=== PATIENT | male | born 1995 | race Caucasian/White ===

== ENCOUNTER 2018-12-09 19:31 | Emergency (ER) | payer OTHER ==
--- NOTE | 2018-12-09 19:50 | ED Physician Documentation ---
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 His eyes are fine and he did not inhale any but his facial skin feels slightly inflamed.) Review of Systems Constitutional: denies: Fever, Chills Cardiac: denies: Chest pain / pressure, Palpitations Respiratory: denies: Dyspnea, Cough PD PAST MEDICAL HISTORY - Past Medical History Past Medical History: Yes Other Past Medical History: Insomnia - Past Surgical History Past Surgical History: No - Present Medications Home Medications: Ambulatory Orders Medication Instructions Recorded Confirmed traZODone [Desyrel] 50 mg PO HS 12/09/18 12/09/18 - Allergies Allergies/Adverse Reactions: Allergies Allergy/AdvReac Type Severity Reaction Status Date / Time No Known Drug Allergies Allergy Verified 12/09/18 19:37 - Social History Does the pt smoke?: Yes Smoking Status: Current every day smoker Does the pt drink ETOH?: Yes Does the pt have substance abuse?: No - Immunizations Immunizations are current?: Yes - POLST Patient has POLST: No PD ED PE NORMAL - Vitals Vital signs reviewed: Yes - General General: Alert and oriented X 3, Other (Smells strongly of gasoline) - HEENT HEENT: PERRL, EOMI, Pharynx benign - Neck Neck: Supple, no meningeal sign, No bony TTP - Cardiac Cardiac: RRR, No murmur - Respiratory Respiratory: No respiratory distress, Clear bilaterally - Abdomen Abdomen: Non tender - Derm Derm: No rash - Neuro Neuro: Alert and oriented X 3, Normal speech - Psych Psych: Normal mood, Normal affect Results - Vitals Vitals: Vital Signs - 24 hr 12/09/18 19:34 Temperature 35.7 C L Heart Rate 112 H Respiratory 97 H Rate Blood Pressure 124/80 O2 Saturation 100 Oxygen O2 Source Room air Departure - Departure Disposition: 01 Home, Self Care Clinical Impression: 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 Return for new issues. Forms: Activity restrictions
[2018-12-09 20:08] VITALS: BP 110/68
== END 2018-12-09 20:02 | disposition home or self-care (01) ==
LOC: ED 19:31
DX: T52.0X1A Toxic effect of petroleum products, accidental (unintentional), initial encounter (principal); F17.200 Nicotine dependence, unspecified, uncomplicated
CPT/HCPCS: 99282; 99285

== ENCOUNTER 2021-03-14 20:22 | Emergency (ER) | payer OTHER ==
--- NOTE | 2021-03-14 20:59 | ED Physician Documentation ---
PD HPI HEADACHE - Stated complaint Stated Complaint: HERNANDEZ - Chief complaint Chief Complaint: Neuro - History obtained from History obtained from: Patient - History of Present Illness Timing - onset: Enter time (16:00) Timing - onset during: Rest (at rest having just finished dinner) Timing - duration: Hours Timing - details: Gradual onset Pain level now: 9 Worst headache ever?: No: Worst headache ever? Location: Global Quality: Throbbing, Aching Associated symptoms: Nausea. No: Fever, Stiff neck, Vomiting, Weakness, Numbness Improved by: Rest, Dark room Contributing factors: No: Anticoagulated, Possible carbon monoxide, Hypertension Similar symptoms before: No diagnosis (similar headaches in the past but he has them unusually and hasn't needed medical attention for headache for many years) Recently seen: Not recently seen Review of Systems Constitutional: denies: Fever, Chills, Sweats Eyes: reports: Photophobia. denies: Loss of vision, Decreased vision GI: reports: Nausea. denies: Abdominal Pain, Vomiting Neurologic: reports: Headache. denies: Generalized weakness, Focal weakness, Numbness PD PAST MEDICAL HISTORY - Past Medical History Past Medical History: Yes Neuro: Headaches - Past Surgical History Past Surgical History: No - Present Medications Home Medications: Ambulatory Orders Medication Instructions Recorded Confirmed Promethazine [Phenergan] 25 mg PO Q6H PRN #10 tab 03/14/21 SUMAtriptan [Imitrex] 25 mg PO ONCE PRN #20 tablet 03/14/21 - Allergies Allergies/Adverse Reactions: Allergies Allergy/AdvReac Type Severity Reaction Status Date / Time No Known Drug Allergies Allergy Verified 03/14/21 20:30 - Social History Does the pt smoke?: Yes Smoking Status: Current every day smoker Does the pt drink ETOH?: Yes Does the pt have substance abuse?: No - Immunizations Immunizations are current?: Yes - POLST Patient has POLST: No PD ED PE NORMAL - Vitals Vital signs reviewed: Yes - General General: Alert and oriented X 3, No acute distress (NAD at rest but lights off for patient comfort, and he keeps a towel over his eyes due to photophobia), Well developed/nourished - HEENT HEENT: Moist mucous membranes - Neck Neck: Supple, no meningeal sign - Cardiac Cardiac: RRR, No murmur - Respiratory Respiratory: No respiratory distress, Clear bilaterally - Neuro Neuro: Alert and oriented X 3, client services director 2-12 intact, No motor deficit, No sensory deficit, Normal speech Eye Opening: Spontaneous Motor: Obeys Commands Verbal: Oriented GCS Score: 15 - Psych Psych: Normal mood, Normal affect Results - Vitals Vitals: Oxygen O2 Source Room air PD MEDICAL DECISION MAKING - ED course Complexity details: re-evaluated patient, considered differential, d/w patient ED course: Patient reports significant improvement after IM benadryl, toradol, and phenergan and requests d/c home. Departure - Departure Disposition: , Self Care Clinical Impression: Headache Condition: Good Instructions: ED Cephalgia Unspecified Follow-Up: [facility] [Provider Group] Prescriptions: SUMAtriptan [Imitrex] 25 mg PO ONCE PRN #20 tablet PRN Reason: Headache Promethazine [Phenergan] 25 mg PO Q6H PRN #10 tab PRN Reason: Nausea / Vomiting Forms: Activity restrictions Discharge Date/Time: 03/14/21 22:45
[2021-03-14] MEDS: PROMETHAZINE 25 MG/1 ML VIAL IM STA (21:28)
[2021-03-14] MEDS: KETOROLAC 15 MG/ML VIAL IM STA (21:28)
[2021-03-14] MEDS: diphenhydrAMINE INJ 50 MG/ML VIAL IM STA (21:29)
[2021-03-14 22:39] VITALS: BP 137/79
[2021-03-14] MEDS: SUMAtriptan 25 MG TABLET PO STA (22:40)
== END 2021-03-14 22:45 | disposition home or self-care (01) ==
LOC: ED 20:22
DX: R51.9 Headache, unspecified (principal); R11.0 Nausea; H53.149 Visual discomfort, unspecified; F17.200 Nicotine dependence, unspecified, uncomplicated
CPT/HCPCS: 96372; 96374; 99283; A9270; J1200

== ENCOUNTER 2021-08-08 16:34 | Emergency (ER) | payer OTHER ==
[2021-08-08] MEDS ORDERED: ONDANSETRON 4 MG/2 ML VIAL IVP STA (16:48)
[2021-08-08] MEDS ORDERED: diphenhydrAMINE INJ 50 MG/ML VIAL IVP STA (16:48)
[2021-08-08] MEDS ORDERED: SODIUM CHLORIDE 0.9% 1,000 ML IV STA (16:48)
--- NOTE | 2021-08-08 16:51 | ED Physician Documentation ---
History of Present Illness - Stated complaint Stated Complaint: VOMITING/LIGHT HEADED - Chief complaint Chief Complaint: General - Additonal information Additional information: 25-year-old male presents emergency department for evaluation of sudden headache, lightheadedness, and dizziness. He was doing his typical workout and cooling down when he began to feel faint and lightheaded. He saw stars flashing in front of his eyes and thought that he would maybe pass out. sudden severe headache. The symptoms lasted for about 5 minutes. He denies any chest pain or shortness of air. He then called the nurse advice line who told him to come to the ER. Past medical history is most significant for migraines though his typical migraine pattern does not include dizziness or vision changes. Right now he feels better but has mild headache. he is in a mandatory fitness workout schedule with the [employer] Review of Systems Constitutional: denies: Fever, Chills Eyes: reports: Reviewed and negative Ears: reports: Reviewed and negative Nose: reports: Reviewed and negative Throat: reports: Reviewed and negative Cardiac: reports: Reviewed and negative Respiratory: reports: Reviewed and negative GI: reports: Reviewed and negative : denies: Dysuria, Frequency, Hesitancy Skin: denies: Rash Musculoskeletal: reports: Reviewed and negative Neurologic: reports: Near syncope, Headache. denies: Generalized weakness, Focal weakness PD PAST MEDICAL HISTORY - Past Medical History Neuro: Headaches - Past Surgical History Past Surgical History: No - Present Medications Home Medications: Ambulatory Orders Medication Instructions Recorded Confirmed Promethazine [Phenergan] 25 mg PO Q6H PRN #10 tab 03/14/21 SUMAtriptan [Imitrex] 25 mg PO ONCE PRN #20 tablet 03/14/21 - Allergies Allergies/Adverse Reactions: Allergies Allergy/AdvReac Type Severity Reaction Status Date / Time No Known Drug Allergies Allergy Verified 08/08/21 16:36 - Social History Does the pt smoke?: Yes Smoking Status: Current every day smoker Does the pt drink ETOH?: Yes Does the pt have substance abuse?: No - Immunizations Immunizations are current?: Yes - POLST Patient has POLST: No PD ED PE NORMAL - General General: Alert and oriented X 3, No acute distress - HEENT HEENT: PERRL, Ears normal, Moist mucous membranes - Neck Neck: Supple, no meningeal sign, No adenopathy, Thyroid normal - Cardiac Cardiac: RRR, No murmur, No gallop - Respiratory Respiratory: No respiratory distress, Clear bilaterally - Abdomen Abdomen: Normal bowel sounds, Soft, Non tender - Back Back: No CVA TTP, No spinal TTP - Derm Derm: Normal color, Warm and dry, No rash - Extremities Extremities: No deformity - Neuro Neuro: Alert and oriented X 3 Eye Opening: Spontaneous Motor: Obeys Commands Verbal: Oriented GCS Score: 15 Results - Vitals Vitals: Vital Signs - 24 hr 08/08/21 16:36 Temperature 36.5 C Heart Rate 70 Respiratory 16 Rate Blood Pressure 112/74 O2 Saturation 98 Oxygen O2 Source Room air - EKG (time done) 1725 Rate: Rate (enter#) (63) Rhythm: NSR [place]: RAD QRS: Normal Ischemia: Non specific changes (non specific ST elevation, however not c/w pericarditis) Compare to prior EKG: Old EKG unavailable Computer interpretation: Disagree with computer ( ) - Labs Labs: Laboratory Tests 08/08/21 08/08/21 08/08/21 16:45 16:45 16:45 WBC 11.6 H RBC 5.33 Hgb 14.8 Hct 44.3 MCV 83.1 MCH 27.8 MCHC 33.4 RDW 12.7 Plt Count 237 MPV 10.6 Neut # (Auto) 9.3 H Lymph # (Auto) 1.4 L [place] # (Auto) 0.7 Eos # (Auto) 0.1 Baso # (Auto) 0.1 Absolute Nucleated RBC 0.00 Nucleated RBC % 0.0 Sodium 135 Potassium 3.8 Chloride 96 L Carbon Dioxide 32 Anion Gap 7.0 BUN 10 Creatinine 0.9 Estimated GFR (MDRD) 105 Glucose 80 Calcium 9.3 Total Bilirubin 0.6 AST 18 ALT 20 Alkaline Phosphatase 46 Troponin I High Sens 4.5 Total Protein 7.3 Albumin 4.4 Globulin 2.9 Albumin/Globulin Ratio 1.5 Lipase 25 - Rads (name of study) CXR Radiology: Final report received (no acute process) Head CT Radiology: Final report received (no acute intracranial process) PD MEDICAL DECISION MAKING - ED course Complexity details: reviewed results, re-evaluated patient, d/w patient ED course: 25-year-old male presents emergency department for evaluation of headache, near syncope and dizziness at the completion of a workout. He denied having any chest pain or shortness of air. His chief within the [employer] requested he come to the ER. He does have a history of migraines but this headache was typical and more sudden onset. He presented with no focal neuro deficits. A head CT did not show any acute findings in particular no findings to suggest subarachnoid hemorrhage. As this was completed within 6 hours of symptoms that should be sufficient to rule out subarachnoid hemorrhage. Patient was given a liter of IV fluids, Compazine and Benadryl with full resolution of his headache. Chest x-ray is without acute focal findings. Screening labs do not show any worrisome abnormalities. His troponin was negative. His screening EKG suggested mild generalized ST elevation suggestive of pericarditis. However he did not have changes in the reciprocal leads particular aVR that would suggest pericarditis and the ST elevations appear to be more J-point elevation. Given that the patient has no chest pain or shortness of air this is felt less likely. Patient is encouraged to continue to follow-up with [facility]. As he was on a mandated fitness schedule I have encouraged him to get clearance for further work-ups through [facility]. Departure - Departure Disposition: 01 Home, Self Care Clinical Impression: Near syncope Headache Qualifiers: Headache type: unspecified Headache chronicity pattern: acute headache Intractability: not intractable Qualified Code(s): R51.9 - Headache, unspecified Condition: Stable Record reviewed to determine appropriate education?: Yes Instructions: ED Near Syncope Unkn, ED Cephalgia Unspecified Comments: You were seen in the emergency department today after developing a sudden headache and nearly fainting while you were cooling down after your workout. Your screening labs do not show any worrisome findings. The chest x-ray and CT scan of your head also did not show any worrisome findings. I would encourage you to continue close follow-up with [facility] to obtain clearance before participating again in the workout regimen that they are mandating. IF you develop chest pain, have any shortness of air, fevers, or a sudden severe headache, then please return to the ED for a second evaluation
--- NOTE | 2021-08-08 16:59 | XRAY Report ---
PROCEDURE: Chest 1 View X-Ray INDICATIONS: chest pain TECHNIQUE: One view of the chest was acquired. COMPARISON: None FINDINGS: Surgical changes and devices: None. Lungs and pleura: No pleural effusions or pneumothorax. Lungs are clear. Mediastinum: Mediastinal contours appear normal. Heart size is normal. Bones and chest wall: No suspicious bony lesions. Overlying soft tissues appear unremarkable. IMPRESSION: No acute process. Reviewed by: Shante Trevino MD on 08/08/2021 4:58 PM [facility] Approved by: Shante Trevino MD on 08/08/2021 4:58 PM [facility] Station ID: [id number]
[2021-08-08 17:13] LABS: BASOPHILS # (AUTO) 0.1 10^3/uL (0.0-0.1); BASOPHILS % (AUTO) 0.5 %; EOSINOPHILS # (AUTO) 0.1 10^3/uL (0.0-0.7); EOSINOPHILS % (AUTO) 0.8 %; HCT - HEMATOCRIT 44.3 % (42.0-52.0); HGB - HEMOGLOBIN 14.8 g/dL (14.0-18.0); LYMPHOCYTES # (AUTO) 1.4 10^3/uL (1.5-3.5); MEAN CORPUSCULAR HEMOGLOBIN 27.8 pg (27.0-31.0); MEAN CORPUSCULAR HGB CONC 33.4 g/dL (32.0-36.0); MEAN CORPUSCULAR VOLUME 83.1 fL (80.0-94.0); MEAN PLATELET VOLUME 10.6 fL (7.4-11.4); MONOCYTES # (AUTO) 0.7 10^3/uL (0.0-1.0); MONOCYTES % (AUTO) 5.7 %; NEUTROPHILS # (AUTO) 9.3 10^3/uL (1.5-6.6); NEUTROPHILS % (AUTO) 80.5 %; PLT - PLATELET COUNT 237 10^3/uL (130-450); RED BLOOD COUNT 5.33 10^6/uL (4.70-6.10); RED CELL DISTRIBUTION WIDTH 12.7 % (12.0-15.0); WHITE BLOOD COUNT 11.6 x10^3/uL (4.8-10.8)
[2021-08-08 17:26] LABS: ALBUMIN 4.4 g/dL (3.2-5.5); ALBUMIN/GLOBULIN RATIO 1.5 (1.0-2.2); BILIRUBIN,TOTAL 0.6 mg/dL (0.2-1.0); CALCIUM 9.3 mg/dL (8.5-10.3); CREATININE 0.9 mg/dL (0.6-1.2); POTASSIUM 3.8 mmol/L (3.5-5.0); TOTAL PROTEIN 7.3 g/dL (6.7-8.2)
--- NOTE | 2021-08-08 17:32 | CT Report ---
PROCEDURE: HEAD WO INDICATIONS: headache while working out TECHNIQUE: Noncontrast 4.5 mm thick angled axial sections acquired from the foramen magnum to the vertex. For r adiation dose reduction, the following was used: automated exposure control, adjustment of mA and/or kV according to patient size. COMPARISON: None. FINDINGS: Image quality: Excellent. CSF spaces: Basal cisterns are patent. No extra-axial fluid collections. Ventricles are normal in size and shape. Brain: No intracranial hemorrhage, mass, or mass effect. Carl-white matter interface appears preser khris. Skull and face: Calvarium and visualized facial bones are intact, without suspicious lesions. Sinuses: Visualized sinuses and mastoids are clear. IMPRESSION: 1. No acute intracranial abnormality. Reviewed by: Gage Knapp MD on 08/08/2021 4:30 PM [facility] Approved by: Gage Knapp MD on 08/08/2021 4:30 PM [facility] Station ID: [id number]
[2021-08-08 18:15] VITALS: BP 110/72
== END 2021-08-08 18:14 | disposition home or self-care (01) ==
LOC: ED 16:34
DX: R51.9 Headache, unspecified (principal); R55 Syncope and collapse; F17.200 Nicotine dependence, unspecified, uncomplicated
CPT/HCPCS: 36415; 70450; 71045; 80053; 83690; 84484; 85025; 93005; 96374; 99284; J1200